=== PATIENT | female | born 1990 | race Caucasian/White ===

== ENCOUNTER 2020-04-06 20:01 | Emergency (ER) | payer MEDICAID ==
[2020-04-06] MEDS ORDERED: Sodium Chloride 0.9% 10 ML Syringe FLUSH PRN (21:04)
[2020-04-06] MEDS ORDERED: fentaNYL 100 MCG/2 ML SDV IVPUSH ONE (21:04)
[2020-04-06] MEDS ORDERED: Ketorolac 30 MG/ML SDV IVPUSH ONE (21:04)
[2020-04-06] MEDS ORDERED: Ondansetron 4 MG/2 ML SDV IVPUSH ONE (21:04)
[2020-04-06] MEDS ORDERED: Lactated Ringers 1,000 ML IV ONE (21:04)
--- NOTE | 2020-04-06 21:10 | EDM.PDOC ---
ED HPI GENERAL MEDICAL PROBLEM - General Stated Complaint: POSSIBLE KIDNEY STONE Time Seen by Provider: 04/06/20 21:00 Source of Information: Reports: Patient - History of Present Illness INITIAL COMMENTS - FREE TEXT/NARRATIVE: Chandler is a 29 y/o female who comes to the ER tonight with pain in her left lower abd region. She reports the pain started this AM and was sharp and constant and then returned this afternoon. She got nauseated and did vomit several times today. 1 small bout fo diarrhea. No fever. She has had a kidney stone a few years ago and it feels very similar. - Related Data Allergies Allergy/AdvReac Type Severity Reaction Status Date / Time No Known Allergies Allergy Verified 11/14/14 15:18 Home Meds: Home Meds ClonazePAM [KlonoPIN] 1 mg PO TID 11/14/14 [History] LORazepam [Ativan] 1 mg PO TID 11/14/14 [History] Past Medical History - Past Health History Medical/Surgical History: Denies Medical/Surgical History Review of Systems - Review of Systems Review Of Systems: See Below ED EXAM, GENERAL - Physical Exam Exam: See Below General Appearance: Alert, WD/WN (Adult female, appears to be in pain.) Ears: Hearing Grossly Normal Nose: Normal Inspection Throat/Mouth: Normal Voice Head: Atraumatic, Normocephalic Neck: Normal Inspection Respiratory/Chest: No Respiratory Distress, Lungs Clear Cardiovascular: Regular Rate, Rhythm GI/Abdominal: Normal Bowel Sounds, Soft, Tender (LLQ) (Female) Exam: Deferred Rectal (Female) Exam: Deferred Back Exam: Normal Inspection. No: CVA Tenderness (L), CVA Tenderness (R) Extremities: Normal Inspection, Normal Range of Motion, Normal Capillary Refill Neurological: Alert, Oriented, CN II-XII Intact, Normal Cognition Psychiatric: Normal Affect, Normal Mood Skin Exam: Warm, Dry, Intact, Normal Color, No Rash Course - Vital Signs Text/Narrative:: 2099 The patient was seen by the DRI[employer] FI[employer] OPERATOR. Labs ordered. She was given a liter of fluids and Toradol 30mg IVP and Zofran 4mg IVP. Noted small amt of blood in urine, CT ordered to rule out a stone. 0 CT results reviewed, no acute findings. WBC=11.1 with neuts elevated. CMP neg. Patient feeling better at this time. Pain much improved. Will dishcarge to home. She was given discharge instructions and left the ER in stable condition. - Orders/Labs/Meds Orders: Active Orders 24 hr Category Date Time Status Abdomen Pelvis wo Cont [CT] Stat Exams 04/06/20 21:30 Taken Sodium Chloride 0.9% [Saline Flush] Med 04/06/20 21:04 Active 10 ml FLUSH ASDIRECTED PRN Saline Lock Insert [OM.PC] Stat Oth 04/06/20 21:04 Ordered Medication Orders Sodium Chloride (Saline Flush) 10 ml FLUSH ASDIRECTED PRN PRN Reason: Keep Vein Open Labs: Laboratory Tests 04/06/20 04/06/20 04/06/20 Range/Units 20:48 21:14 21:14 WBC 11.2 H (4.0-10.0) x10^3/uL RBC 4.12 (4.00-5.50) x10^6/uL Hgb 13.5 (12.0-16.0) g/dL Hct 39.9 (33.0-47.0) % MCV 96.8 H (78.0-93.0) fL MCH 32.8 H (26.0-32.0) pg MCHC 33.8 (32.0-36.0) g/dL RDW Coeff of Antony 11.9 (10.0-15.0) % Plt Count 253 (130-400) x10^3/uL Neut % (Auto) 81.6 H (50.0-80.0) % Lymph % (Auto) 12.2 L (25.0-50.0) % [place] % (Auto) 5.5 (2.0-11.0) % Eos % (Auto) 0.6 (0.0-4.0) % Baso % (Auto) 0.1 L (0.2-1.2) % Sodium 140 (136-145) mmol/L Potassium 3.8 (3.5-5.1) mmol/L Chloride 102 (98-107) mmol/L Carbon Dioxide 26 (21-32) mmol/L Anion Gap 15.8 (10-20) mmol/L BUN 15 (7-18) mg/dL Creatinine 1.0 (0.55-1.02) mg/dL Est Cr Clr Drug Dosing TNP Estimated GFR (MDRD) > 60 Glucose 116 H (74-106) mg/dL Calcium 9.2 (8.5-10.1) mg/dL Corrected Calcium 9.20 (8.5-10.1) mg/dL Total Bilirubin 0.5 (0.2-1.0) mg/dL AST 20 (15-37) U/L ALT 33 (14-59) U/L Alkaline Phosphatase 63 (46-116) U/L Total Protein 7.6 (6.4-8.2) g/dL Albumin 4.0 (3.4-5.0) g/dL Globulin 3.6 Albumin/Globulin Ratio 1.11 Urine Color Dark yellow H (YELLOW) Urine Appearance Slightly cloudy H (CLEAR) Urine pH 5.5 (5.0-8.0) Ur Specific [place] >=1.030 Urine Protein Trace H (NEGATIVE) mg/dL Urine Glucose (UA) Negative (NEGATIVE) mg/dL Urine Ketones Trace H (NEGATIVE) mg/dL Urine Occult Blood Small H (NEGATIVE) Urine Nitrite Negative (NEGATIVE) Urine Bilirubin Small H (NEGATIVE) Urine Urobilinogen 1.0 (0.2) EU/dL Ur Leukocyte Esterase Negative (NEGATIVE) U Hyaline Cast (Auto) Rare Urine RBC 0-5 (NOT SEEN) /HPF Urine WBC 0-5 (NOT SEEN) /HPF Ur Squamous Epith Cells Few H (NEGATIVE) /HPF Urine Bacteria Not seen (NEGATIVE) /HPF Urine Mucus Many H (NEGATIVE) /LPF Meds: Medications Generic Name Dose Route Start Last Admin Trade Name Freq PRN Reason Stop Dose Admin Sodium Chloride 10 ml 04/06/20 21:04 Saline Flush FLUSH ASDIRECTED PRN Keep Vein Open Discontinued Medications Generic Name Dose Route Start Last Admin Trade Name Freq PRN Reason Stop Dose Admin Fentanyl 100 mcg 04/06/20 21:04 Sublimaze IVPUSH 04/06/20 21:05 ONETIME ONE Lactated Ringer's 1,000 mls @ 999 mls/hr 04/06/20 21:04 Ringers, Lactated IV 04/06/20 22:04 ONETIME ONE Ketorolac Tromethamine 30 mg 04/06/20 21:04 Toradol IVPUSH 04/06/20 21:05 ONETIME ONE Ondansetron HCl 4 mg 04/06/20 21:04 Zofran IVPUSH 04/06/20 21:05 ONETIME ONE Ondansetron HCl 1 packet 04/06/20 22:03 Take Home: Ondansetron Odt 4 Mg, 2 Tab Pack PO 04/06/20 22:04 ONETIME ONE - Radiology Interpretation Free Text/Narrative:: CT Abd/Pelvis-WO=no acute findings Departure - Departure Time of Disposition: 22:03 Disposition: Home, Self-Care 01 Condition: Good Clinical Impression: LLQ abdominal pain - Discharge Information Instructions: Abdominal Pain, Adult, Pain Without a Known Cause Referrals: Nitesh Ramos PA-C [Primary Care Provider] - - My Orders Last 24 Hours: My Active Orders 04/06/20 21:04 Sodium Chloride 0.9% [Saline Flush] 10 ml FLUSH ASDIRECTED PRN Saline Lock Insert [OM.PC] Stat 04/06/20 21:30 Abdomen Pelvis wo Cont [CT] Stat - Assessment/Plan Last 24 Hours: My Active Orders 04/06/20 21:04 Sodium Chloride 0.9% [Saline Flush] 10 ml FLUSH ASDIRECTED PRN Saline Lock Insert [OM.PC] Stat 04/06/20 21:30 Abdomen Pelvis wo Cont [CT] Stat Assessment:: 1)LLQ Abdominal Pain Plan: -Ondanestron 4mg oral every 4-6 hours as needed for nausea #2(Rx) -Use ibuprofen or acetaminophen as needed for pain -Rest -If pain persists or symptoms worse, follow up with your PCP or return to the ER
[2020-04-06 21:46] LABS: ANION GAP 15.8 mmol/L (10-20); CHLORIDE,CL 102 mmol/L (98-107); SODIUM,NA 140 mmol/L (136-145)
[2020-04-06] MEDS ORDERED: Take Home: Ondansetron 4 MG Tab.DIS, 2 Tab Pack PO ONE (22:03)
[2020-04-07 07:10] VITALS: BP 143/87; PULSE 100
--- NOTE | 2020-04-07 08:57 | CT ---
[id number] CT/CT Abdomen Pelvis WO IV EXAM: ABDOMEN AND PELVIS CT WITHOUT CONTRAST INDICATION: RULE OUT CALCULI, LEFT LOWER QUADRANT ABDOMEN PAIN. COMPARISON: None. DISCUSSION: The stomach is mildly distended by food debris, correlate with recent ingestion. Scattered diverticula of the colon without evidence of diverticulitis. No renal/ureteral calculus is identified. No hydronephrosis on either side. Unenhanced images of the liver, gallbladder, spleen, pancreas, adrenal glands, small bowel, and the appendix are unremarkable. Trace free fluid in the pelvis. There are multiple bilateral ovarian follicles including a dominant 29 mm complicated-appearing dominant right follicle. IMPRESSION: 1. No renal/ureteral calculus or hydronephrosis. Bob Salamanca MD 04/07/20 0856 Thank you for allowing us to participate in the care of your patient.
== END 2020-04-06 22:20 | disposition home or self-care (01) ==
LOC: VM.ED 20:01
DX: R10.32 Left lower quadrant pain (principal); Z79.899 Other long term (current) drug therapy
CPT/HCPCS: 74176; 80053; 81001; 85025; 96374; 96375; 99284; A9270; J1885; J2405; J7120

== ENCOUNTER 2020-07-16 01:25 | Emergency (ER) | payer MEDICAID ==
[2020-07-16] MEDS ORDERED: Sodium Chloride 0.9% 1,000 ML IV ONE (01:35)
[2020-07-16] MEDS ORDERED: Flumazenil 0.1 MG/ML 5 ML MDV IVPUSH ONE (01:45)
[2020-07-16] MEDS ORDERED: Calcium Gluconate 10% 1 GM/10 ML SDV IVPUSH ONE (02:00)
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
[2020-07-16 02:34] LABS: BARBITURATE SCREEN,URINE NEGATIVE (NEGATIVE); EDDP,URINE SCREEN NEGATIVE (NEGATIVE); METHAMPHETAMINE SCREEN, URINE NEGATIVE (NEGATIVE)
[2020-07-16 02:35] LABS: BENZODIAZEPINES SCREEN,URINE POSITIVE (NEGATIVE); TCA SCREEN,URINE NEGATIVE (NEGATIVE); THC SCREEN,URINE 50 NG/ML POSITIVE (NEGATIVE)
[2020-07-16 02:42] LABS: CHLORIDE,CL 106 mmol/L (98-107); SODIUM,NA 144 mmol/L (136-145)
[2020-07-16 02:43] LABS: ANION GAP 14.6 mmol/L (5-15)
[2020-07-16 05:24] VITALS: BP 88/55; PULSE 81
[2020-07-16] MEDS ORDERED: Flumazenil 0.1 MG/ML 5 ML MDV ONE (06:11)
== END 2020-07-16 03:00 | disposition short-term general hospital (02) ==
LOC: VM.ED 01:25 → EEVIPCON 01:25 → SUPCPDRO 01:25 → VM.ED 03:00
DX: T46.5X2A Poisoning by other antihypertensive drugs, intentional self-harm, initial encounter (principal); F10.10 Alcohol abuse, uncomplicated; Y90.7 Blood alcohol level of 200-239 mg/100 ml
CPT/HCPCS: 80053; 80143; 80179; 80305-QW; 80307; 81003; 82550; 84484; 85025; 86140; 93005; 96374; 96375; 99283; 99285-25; J0610; J3490; J7030